=== PATIENT | female | born 1965 | race Caucasian/White ===

== ENCOUNTER → 2016-08-08 | Outpatient (CLI) | payer OTHER ==
[~2016-08-08] MED LIST: CRFUDL PO; PANT40TA PO; ZNTT/150 PO
== END | disposition home or self-care (01) ==
LOC: C.LAB1850 13:59
PROVIDERS: ATTEND Obstetrics & Gynecology
DX: N95.1 Menopausal and female climacteric states (principal)

== ENCOUNTER → 2016-08-08 | Outpatient (CLI) | payer OTHER | END | disposition home or self-care (01) | LOC: C.PATHSPEC 17:31 | PROVIDERS: ATTEND Obstetrics & Gynecology | DX: N85.8 Other specified noninflammatory disorders of uterus (principal) ==

== ENCOUNTER → 2016-08-08 | Outpatient (CLI) | payer OTHER ==
--- NOTE | 2016-08-08 16:30 | MAMMOGRAPHY REPORT ---
BILATERAL DIGITAL SCREENING MAMMOGRAM TOMOSYNTHESIS WITH CAD: 08/08/2016 CLINICAL HISTORY: Routine screening. Patient has no complaints. TECHNIQUE: Breast tomosynthesis in addition to standard 2D mammography was performed. Current study was also evaluated with a Computer Aided Detection (CAD) system. COMPARISON: Comparison is made to exams dated: 08/01/2015 mammogram, 06/27/2014 mammogram - [facility], 06/17/2011 mammogram, 11/27/2010 mammogram, 07/20/2006 mammogram, and 07/17/2006. BREAST COMPOSITION: There are scattered areas of fibroglandular density in both breasts. FINDINGS: No suspicious masses, calcifications, or areas of architectural distortion are noted in e ither breast. There has been no significant interval change compared to prior exams. IMPRESSION: ACR BI-RADS CATEGORY 1: NEGATIVE There is no mammographic evidence of malignancy. A 1 year screening mammogram is recommended. The p atient will receive written notification of the results. Approximately 10% of breast cancers are not detected with mammography. A negative mammographic repor t should not delay biopsy if a clinically suggestive mass is present. Silke Gross M.D. /:08/08/2016 13:46:10 Movie Projectionist: Carmen CANO(Marcos)([place])([place]), [facility] letter sent: Normal 1/2 BI-RADS Code: ACR BI-RADS Category 1: Negative
== END | disposition home or self-care (01) ==
LOC: C.MAMM 08:51
PROVIDERS: ATTEND Obstetrics & Gynecology
DX: Z12.31 Encounter for screening mammogram for malignant neoplasm of breast (principal)

== ENCOUNTER → 2016-08-08 | Outpatient (CLI) | payer OTHER | END | disposition home or self-care (01) | LOC: C.PAPS 10:36 | PROVIDERS: ATTEND Obstetrics & Gynecology | DX: Z01.419 Encounter for gynecological examination (general) (routine) without abnormal findings (principal) ==

== ENCOUNTER → 2016-09-08 | Outpatient (CLI) | payer OTHER ==
--- NOTE | 2016-09-08 07:54 | DIAGNOSTIC IMAGING REPORT ---
CT SCAN OF THE CHEST WITHOUT IV CONTRAST CLINICAL HISTORY: Pulmonary nodule. COMPARISON STUDY: Chest CT scans dated 03/14/2016, 01/21/2016, and 07/29/2011. TECHNIQUE: CT scan of the thorax was performed from the thoracic inlet to the upper abdomen. Images are reviewed in the axial, sagittal, and coronal planes. IV contrast was not administered for this examination as per the referring clinician. CT DOSE: 982.87 mGy.cm FINDINGS: Thyroid: Imaged portions of the thyroid gland are normal in size and attenuation. Thoracic aorta: The thoracic aorta is normal in caliber and demonstrates standard 3-vessel arch anatomy. Heart: The heart is normal in size and without pericardial effusion. The pulmonary trunk is normal in caliber. Lungs and pleural spaces: There is no airspace consolidation typical for pneumonia or pleural effusion. Clustered nodules in the left lower lobe best seen on image #173 are similar to previous. The largest individual nodule measures up to 10 mm. The trachea and central airways are clear. Mediastinum: There is no mediastinal lymphadenopathy. Roya: Not well assessed without IV contrast. Axillae: There is no axillary lymphadenopathy. Upper abdomen: The liver is steatotic. Cholecystectomy clips are noted. Calcifications are identified in the left adrenal gland. A tiny hiatal hernia is noted. Skeletal structures: No lytic or blastic bony lesions are seen. IMPRESSION: 1. There is no airspace consolidation typical for pneumonia or pleural effusion. 2. There is clustered nodularity in the left lower lobe. This is unchanged from 01/21/2016 but is new from 07/29/2011. Top differential considerations include a chronic infectious/inflammatory process versus a vascular malformation. The appearance is atypical for neoplasm, which is considered much less likely. 3. No new foci of nodularity are identified. 4. Hepatic steatosis. Electronically signed by: Navneet Richard M.D. 09/08/2016 7:53 AM Dictated Date/Time: 09/08/2016 7:47 AM
== END | disposition home or self-care (01) ==
LOC: C.CTS 06:37
PROVIDERS: ATTEND Family Medicine
DX: R91.1 Solitary pulmonary nodule (principal); R91.8 Other nonspecific abnormal finding of lung field

== ENCOUNTER → 2017-05-14 | Outpatient (CLI) | payer OTHER ==
[~2017-05-14] MED LIST changes: +RANI150T85 PO; -ZNTT/150 PO
== END | disposition home or self-care (01) ==
LOC: C.PATHSPEC 13:48
PROVIDERS: ATTEND Obstetrics & Gynecology
DX: N95.0 Postmenopausal bleeding (principal)

== ENCOUNTER → 2017-07-03 | Outpatient (CLI) | payer OTHER ==
[2017-07-03 14:47] LABS: BASO % 0.2 %; BASO ABS # 0.02 K/uL (0-0.2); EOS % 1.7 %; EOS ABS # 0.16 K/uL (0-0.5); HEMATOCRIT 45.4 % (37-47); HEMOGLOBIN 14.7 g/dL (12.0-16.0); IG# 0.03 K/uL (0.00-0.02); LYMPH % 24.5 %; LYMPH ABS # 2.32 K/uL (1.2-3.4); MEAN CELL VOLUME 79.4 fL (80-100); MEAN CORPUSCULAR HEMOGLOBIN 25.7 pg (25-34); MEAN CORPUSCULAR HGB CONC 32.4 g/dl (32-36); MEAN PLATELET VOLUME 10.4 fL (7.4-10.4); MONO % 6.1 %; MONO ABS # 0.58 K/uL (0.11-0.59); NEUT % 67.2 %; NEUT ABS # 6.36 K/uL (1.4-6.5); PLATELET COUNT 213 K/uL (130-400); RED CELL DISTRIBUTION WIDTH CV 14.9 % (11.5-14.5); RED CELL DISTRIBUTION WIDTH SD 43.1 fL (36.4-46.3); WHITE BLOOD COUNT 9.47 K/uL (4.8-10.8)
== END | disposition home or self-care (01) ==
LOC: C.LAB1850 13:27
PROVIDERS: ATTEND Obstetrics & Gynecology
DX: Z01.818 Encounter for other preprocedural examination (principal)

== ENCOUNTER → 2017-07-13 | Day surgery (SDC) | payer OTHER ==
[2017-07-06 15:47] VITALS: BMI 43.0
[~2017-07-13] VITALS: Ht 172.7 cm; Wt 132.0 kg
[~2017-07-13] MED LIST changes: +ACETAMINOPHEN 325 MG TAB PO PRN; +ACETAMINOPHEN 650 MG SUPP PR PRN; +ATROPINE SULFATE 0.1 MG/ML 5ML SYR IV PRN; +CHECK SCOPOLAMINE PATCH PLACEMENT SCH; -CRFUDL PO; +DEXAMETHASONE SOD INJ 4 MG/ML VIAL ONE; +EpHEDrine SULFATE INJ 50 MG/ML AMP IV PRN; +FENTANYL CITRATE INJ 50 MCG/1 ML 2 ML VIAL IV PRN; +FENTANYL CITRATE INJ 50 MCG/1 ML 2 ML VIAL ONE; +FLUMAZENIL 0.1 MG/1 ML 10 ML VIAL IV PRN; +IBUPROFEN 200 MG TAB PO PRN; +IBUPROFEN 600 MG TAB PO PRN; +KETOROLAC TROMETHAMINE 30 MG/ML VIAL IV. PRN; +KETOROLAC TROMETHAMINE 30 MG/ML VIAL ONE; +LABETALOL HCL IV 5 MG/ML 20ML IV PRN; +LACTATED RINGER'S 1000ML 1,000 ML IV SCH; +LIDOCAINE HCL 2% 2 ML VIAL (20MG/ML) ONE; +MEPERIDINE HCL 25 MG/ML CARP IV PRN; +MIDAZOLAM HCL 1 MG/ML 2ML VIAL ONE; +NALOXONE HCL 0.4 MG/1 ML VIAL/CARP IV PRN; +NURSING VERBAL MED ORDER ONE; +ONDANSETRON INJ 2 MG/ML 2 ML VIAL IV PRN; +ONDANSETRON INJ 2 MG/ML 2 ML VIAL ONE; +PHENYLEPHRINE 100MCG/ML 5ML SYR IV PRN; +PROMETHAZINE HCL INJ 25 MG in SODIUM CHLORIDE 0.9% 50ML 50 ML IV SCH; +PROPOFOL IV EMULSION 10 MG/ML 20 ML VIAL IV ONE; +SCOPOLAMINE 1.5 MG TDSY TD ONE; +SILVER NITR/POTASSIUM NITRATE APPLICATOR ONE; +SODIUM CHLORIDE 0.9% 1000ML 1,000 ML IV SCH
[2017-07-13 07:44] VITALS: BP 155/91; PULSE 83; TEMP 37.1; O2SAT 95; Ht 172.7 cm; Wt 132.0 kg
--- NOTE | 2017-07-13 08:42 | History & Physical Bridge Note ---
H&P Re-Evaluation Bridge Note: I have examined the patient, reviewed the History & Physical and in the interval since the performance of the History & Physical I have noted the following changes of clinical significance: No changes noted
--- NOTE | 2017-07-13 09:37 | [facility] Post Operative Brief Note ---
Immediate Operative Summary Operative Date Jul 13, 2017. Pre-Operative Diagnosis Postmenopausal bleeding; Endometrial mass Post-Operative Diagnosis same Procedure(s) Performed D&C/[facility] [place] myosure removal of endometrial masses Surgeon Dr. Bert Pena Title Clerk Automobile Surgeon(s) none Estimated Blood Loss 10cc Findings Consistent with Post-Op Diagnosis Fluids (cc crystalloids) 600cc, deficit 355cc Specimens myosure masses curretings Drains None Anesthesia Type General Complication(s) none Disposition Accompanied Pt To Recover: no Disposition: Recovery Room / PACU
--- NOTE | 2017-07-13 09:39 | Discharge Instructions ---
Discharge Instructions Date of Service Jul 13, 2017. Visit Reason for Visit: Post-Menopausal Bleeding Discharge Discharge Diagnosis / Problem: s/p D&C/hysteroscopy, removal of masses Discharge Goals Goal(s): Specific goals Activity Recommendations Activity Limitations: per Instructions/Follow-up section Anesthesia . Post Anesthesia Instructions: If you have had General Anesthesia or IV Sedation: * Do not drive today. * Resume driving when surgeon permits. * Do not make important decisions or sign legal documents today. * Call surgeon for: 1. Temperature elevations greater than 101 degrees F. 2. Uncontrollable pain. 3. Excessive bleeding. 4. Persistent nausea and vomiting. 5. Medication intolerance (nausea, vomiting or rash). * For nausea and vomiting use only clear liquids such as: tea, soda, bouillon until nausea subsides, then gradually increase diet as tolerated. * If you have any concerns or questions, call your surgeon's office. If physician is unavailable and it is an emergency, call 911 or go to the nearest emergency room. . Instructions / Follow-Up Instructions / Follow-Up ACTIVITY RECOMMENDATIONS: * Avoid tampons, douching, hot tubs, pools, and intercourse until bleeding has stopped. * May shower as usual. * No strenuous activity for 24-48 hours. After 24-48 hours, you may do anything you feel like doing (driving and sports are okay). SPECIAL CARE INSTRUCTIONS: Special Diet: * Mild nausea may occur in the immediate post-operative period. * Take clear liquids such as tea, cola or bouillon until all nausea has subsided; you may then resume your normal diet. Special Care: * Light bleeding and vaginal spotting can last from a few days to 3-4 weeks. Call your doctor if bleeding becomes heavier than the heaviest part of your period. * Check your temperature twice a day for one week. If it goes above 100.4 degrees Fahrenheit (38.0 Celsius), notify your doctor. * Call your doctor's office for an appointment for 6 weeks after your surgery. FOLLOW-UP VISIT: Dr. Pena will call you in 3-5 days when pathology back. Diet Recommendations Recommended Home Diet: no limitations, resume previous diet Procedures Procedures Performed: D&C/[facility] [place] myosure removal of endometrial masses Pending Studies Studies pending at discharge: no Medical Emergencies . Who to Call and When: Medical Emergencies: If at any time you feel your situation is an emergency, please call 911 immediately. . Non-Emergent Contact Non-Emergency issues call your: Audio/Video Engineer . . "Provider Documentation" section prepared by Lianna Pena. .
--- NOTE | 2017-07-13 10:25 | Anesthesiology Progress Note ---
Anesthesia Post Op Note Date & Time Jul 13, 2017 at 10:24 Vital Signs Pain Intensity: 1 Vital Signs Past 12 Hours Date Time Temp Pulse Resp B/P (MAP) Pulse Ox O2 Delivery O2 Flow Rate FiO2 07/13/17 10:15 72 16 124/71 96 Room Air 07/13/17 10:05 76 16 143/88 95 Room Air 07/13/17 09:55 88 16 111/83 96 Room Air 07/13/17 09:45 36.0 91 16 109/86 98 Room Air 07/13/17 07:44 37.1 83 20 155/91 (112) 95 Room Air Notes Mental Status: alert / awake / arousable, participated in evaluation Pt Amnestic to Procedure: Yes Nausea / Vomiting: adequately controlled, improving with treatment Pain: adequately controlled Airway Patency, RR, SpO2: stable & adequate BP & HR: stable & adequate Hydration State: stable & adequate Anesthetic Complications: no major complications apparent
[2017-07-13 10:30] VITALS: BP 138/80; PULSE 82; TEMP 36.6; O2SAT 97
[2017-07-13 10:59] VITALS: BP 134/86; PULSE 78; TEMP 36.8; O2SAT 97
--- NOTE | 2017-07-13 13:18 | OPERATIVE REPORT ---
DATE OF OPERATION: 07/13/2017 PREOPERATIVE DIAGNOSES: 1. Postmenopausal bleeding. 2. Endometrial masses. POSTOPERATIVE DIAGNOSES: 1. Postmenopausal bleeding. 2. Endometrial masses. PROCEDURES: 1. Dilatation and curettage hysteroscopy. 2. MyoSure removal of masses. SURGEON: Lianna Pena MD. ANESTHESIA: General per laryngeal mask. ESTIMATED BLOOD LOSS: 10 mL. FLUIDS: 600 mL of IV fluid with 355 mL hysteroscopic deficit. URINE OUTPUT: Approximately 100 mL of concentrated yellow urine drained from the bladder at the beginning of this procedure. INDICATIONS: Aisha is a 51-year-old postmenopausal female who presented with an episode of postmenopausal bleeding. She had a saline infusion sonogram with multiple masses noted. FINDINGS: Uterus sounded to 7 cm. On evaluation with hysteroscopy, there were several masses, some appeared polypoid, others appeared more like fibroids. COMPLICATIONS: None. DRAINS: None. DISPOSITION: To recovery room in stable condition. DESCRIPTION OF PROCEDURE: The patient was taken to the operating room where she was identified verbally and by bracelet. She was placed in dorsal supine position where general anesthesia was induced without difficulty. She was then placed in dorsal lithotomy position in [facility] stirrups and prepped and draped in a normal sterile fashion. Timeout was held identifying correct patient, procedure, positioning, allergies, and no need for preoperative antibiotics. The bladder was drained of urine, and exam under anesthesia revealed a mobile uterus but difficult to estimate size given the patient's obesity. A weighted speculum was placed in posterior vagina, the Barba retractor in the anterior vagina. The anterior lip of the cervix was grasped with a single tooth tenaculum. The uterus was then sounded to 7 cm, was dilated to #25 Rubina dilator. The hysteroscope was introduced with the above noted findings. There were several polypoid masses, some appeared to be polyps, and other appeared to be a fibroid emanating from the posterior left lower uterine segment/upper cervix. The MyoSure was called for and was used to remove all visible masses. Both tubal ostia were visualized. The endometrium was slightly more thick and thin, normal postmenopausal appearance. After the masses were removed, the curettage was then done in 365 degrees, and the procedure was terminated. Instruments removed from the vagina. Some bleeding from the tenaculum site was attended to with silver nitrate. All sponge, lap, and needle counts were correct x2. The patient tolerated the procedure well and was taken to recovery room in stable condition. I attest to the content of the Intraoperative Record and any orders documented therein. Any exception s are noted below.
== END | disposition home or self-care (01) ==
LOC: C.ACU 07:01
PROVIDERS: ATTEND Obstetrics & Gynecology
DX: N95.0 Postmenopausal bleeding (principal); N84.0 Polyp of corpus uteri; K21.9 Gastro-esophageal reflux disease without esophagitis; K44.9 Diaphragmatic hernia without obstruction or gangrene; E66.9 Obesity, unspecified; Z88.5 Allergy status to narcotic agent; Z90.49 Acquired absence of other specified parts of digestive tract; Z83.3 Family history of diabetes mellitus; Z87.891 Personal history of nicotine dependence